=== PATIENT | female | born 1975 | race Caucasian/White ===

== ENCOUNTER → 2020-07-08 | Outpatient (CLI) | payer BC ==
[2005-04-02 07:16] VITALS: TEMP 97.5
== END ==
LOC: MC.RAD 11:30
DX: Z12.31 Encounter for screening mammogram for malignant neoplasm of breast (principal)

== ENCOUNTER → 2022-01-08 | Outpatient (CLI) | payer OTHER ==
[2005-04-02 07:16] VITALS: TEMP 97.5
== END ==
LOC: MC.RAD 07:15
DX: Z12.31 Encounter for screening mammogram for malignant neoplasm of breast (principal)

== ENCOUNTER → 2024-01-27 | Outpatient (CLI) | payer BC ==
[2005-04-02 07:16] VITALS: PULSE 83; TEMP 97.5
== END ==
LOC: MC.RAD 07:55
DX: Z12.31 Encounter for screening mammogram for malignant neoplasm of breast (principal)